=== PATIENT | female | born 1990 | race Caucasian/White ===

== ENCOUNTER 2020-07-17 18:15 | Emergency (ER) | payer SELFPAY ==
[~2020-07-17] VITALS: Ht 157.5 cm; Wt 117.0 kg
[~2020-07-17 18:15] MED LIST: ALBU0.63 NEB; ALBU2.5V8 IH; ALPR2TAB2 PO; MED FOR DEPRESSION PO
--- NOTE | 2020-07-17 19:49 | PHYS DOC ---
Past History Past Medical History: Anxiety, Asthma Past Surgical History: Tonsillectomy, Other Alcohol Use: Occasionally Drug Use: None Adult General Chief Complaint Chief Complaint: HEADACHE HPI HPI Patient is a 30-year-old female who presents to the emergency room complaining of sinus drainage, mild shortness of breath, chest tightness, dry cough. She has had similar symptoms in the past. She is not having any difficulty with her asthma at this time. She has been using her inhaler. She denies any wheezing or respiratory distress. She states this is been going on for the last 2 or 3 days. She does not believe that she has been exposed to Covid but would like to be tested. Review of Systems Review of Systems Complete ROS is negative unless otherwise documented in HPI Allergies Allergies Allergies Coded Allergies Type Severity Reaction Last Updated Verified Latex, Natural Rubber Allergy Unknown 06/12/14 No Penicillins Allergy Unknown 06/12/14 Yes amoxicillin Allergy Unknown 07/17/20 Yes bupropion Allergy Unknown 07/17/20 Yes ketorolac Allergy Unknown 06/12/14 Yes montelukast Allergy Unknown 07/17/20 Yes Physical Exam Physical Exam General: Awake, alert, NAD. Well Nourished, well hydrated. Cooperative HEENT: Atraumatic, EOMI, PERRL, airway patent, moist oral mucosa Neck: Supple, trachea midline Respiratory: CTA bilaterally, normal effort, no wheezing/crackles CV: RRR, no murmur, cap refill <2 GI: Soft, nondistended, nontender, no masses MSK: No obvious deformities Skin: Warm, dry, intact Neuro: A&O x3, speech NL, sensory and motor grossly intact, no focal deficits Psych: Normal affect, normal mood, not suicidal or homicidal EKG EKG [] Radiology/Procedures Radiology/Procedures [] Heart Score Risk Factors: Risk Factors: DM, Current or recent (<one month) smoker, HTN, HLP, family history of CAD, obesity. Risk Scores: Risk Factors: DM, Current or recent (<one month) smoker, HTN, HLP, family history of CAD, obesity. Course & Med Decision Making Course & Med Decision Making Pertinent Labs and Imaging studies reviewed. (See chart for details) Patient is a 30-year-old female who presents to the emergency room with URI symptoms. She is not in any respiratory distress at this time. Covid test will be done. Chest x-ray and test will be done. Patient will be treated symptomatically. Dragon Disclaimer Dragon Disclaimer This electronic medical record was generated, in whole or in part, using a voice recognition dictation system. Departure Departure: Impression: Primary Impression: Bronchitis Disposition: 01 DC HOME SELF CARE/HOMELESS Condition: STABLE Referrals: FRANNIE MARCELO (PCP) Patient Instructions: Acute Bronchitis Scripts Prednisone (PREDNISONE) 50 Mg Tablet 1 TAB PO DAILY for bronchitis, #5 TAB You received this medication in the emergency room today. You will starting your next dose tomorrow. Prov: JANEEN JAIN MD 07/17/20 JANEEN JAIN MD Jul 17, 2020 19:49
--- NOTE | 2020-07-17 20:30 | RAD ---
Exam: Chest one view INDICATION: Short of air TECHNIQUE: Frontal view of the chest Comparisons: 10/17/2014 FINDINGS: The cardiomediastinal silhouette and pulmonary vessels are within normal limits. The lung and pleural spaces are clear. IMPRESSION: No acute cardiopulmonary process. Electronically signed by: Moncho Elliott MD (07/17/2020 8:27 PM) [facility]
[2020-07-17] MEDS ORDERED: PRED50TA PO (20:41)
[2020-07-17 20:50] VITALS: BP 124/67
== END 2020-07-17 20:53 | disposition home or self-care (01) ==
LOC: ER 18:15
DX: J45.909 Unspecified asthma, uncomplicated (principal); F41.9 Anxiety disorder, unspecified; Z91.040 Latex allergy status; Z88.0 Allergy status to penicillin; Z88.1 Allergy status to other antibiotic agents; Z88.8 Allergy status to other drugs, medicaments and biological substances
CPT/HCPCS: 71045; 81025; 99283; 99284; U0003

== ENCOUNTER 2020-10-03 16:01 | Emergency (ER) | payer SELFPAY ==
[~2020-10-03] VITALS: Ht 157.5 cm; Wt 117.0 kg
[~2020-10-03 16:01] MED LIST changes: +PRED50TA PO
--- NOTE | 2020-10-03 16:23 | PHYS DOC ---
Past History Past Medical History: Anxiety, Asthma, Bronchitis, Depression, Pneumonia Past Surgical History: Tonsillectomy, Other Additional Past Surgical Histo: EYES Alcohol Use: None Drug Use: None General Adult EDM: Chief Complaint: COUGH HPI: HPI: 30-year-old female present emergency department today with cough fever congestion and rhinorrhea over the past 2 to 3 days. She denies any difficulty breathing. She does have a history of asthma. She denies any respiratory distress. Location upper respiratory tract. Duration constant. No alleviating factors. Review of systems negative for chest pain abdominal pain vomiting. Positive for fevers chills cough rhinorrhea. Negative for nuchal rigidity or rash. All other review of systems negative. ED course: 30-year-old female presenting with a cough. Vitals are unremarkable. Breathing comfortably in the examination room satting well. No respiratory distress. Influenza testing and Covid testing sent. X-rays unremarkable. Influenza testing negative. Covid testing pending. Covid is likely. I gave the patient Covid discharge instructions and quarantine precautions. Allergies: Allergies: Allergies Coded Allergies Type Severity Reaction Last Updated Verified Latex, Natural Rubber Allergy Unknown 06/12/14 No Penicillins Allergy Unknown 06/12/14 Yes amoxicillin Allergy Unknown 07/17/20 Yes bupropion Allergy Unknown 07/17/20 Yes ketorolac Allergy Unknown 06/12/14 Yes montelukast Allergy Unknown 07/17/20 Yes Physical Exam: PE: Constitutional: Well developed, well nourished, no acute distress, non-toxic appearance. HENT: Normocephalic, atraumatic, bilateral external ears normal, oropharynx moist, no oral exudates, nose normal. [] Eyes: PERRLA, EOMI, conjunctiva normal, no discharge. [] Neck: Normal range of motion, no tenderness, supple, no stridor. [] Cardiovascular:Heart rate regular rhythm, no murmur [] Lungs & Thorax: Bilateral breath sounds clear to auscultation Abdomen: Bowel sounds normal, soft, no tenderness, no masses, no pulsatile masses. [] Skin: Warm, dry, no erythema, no rash. Back: No tenderness, no CVA tenderness. [] Extremities: No tenderness, no cyanosis, no clubbing, ROM intact, no edema. Neurologic: Alert and oriented X 3, normal motor function, normal sensory function, no focal deficits noted. Psychologic: Affect normal, judgement normal, mood normal. [] Current Patient Data: Vital Signs: Vital Signs Date Time Temp Pulse Resp B/P (MAP) Pulse Ox O2 Delivery O2 Flow Rate FiO2 10/03/20 16:08 98.2 89 16 152/79 (103) 100 Room Air EKG: EKG: [] Radiology/Procedures: Radiology/Procedures: [] Heart Score: Risk Factors: Risk Factors: DM, Current or recent (<one month) smoker, HTN, HLP, family history of CAD, obesity. Risk Scores: Score 0 - 3: 2.5% MACE over next 6 weeks - Discharge Home Score 4 - 6: 20.3% MACE over next 6 weeks - Admit for Clinical Observation Score 7 - 10: 72.7% MACE over next 6 weeks - Early Invasive Strategies Course & Med Decision Making: Course & Med Decision Making Pertinent Labs and Imaging studies reviewed. (See chart for details) [] Dragon Disclaimer: Dragon Disclaimer: This electronic medical record was generated, in whole or in part, using a voice recognition dictation system. Departure Departure: Impression: Primary Impression: Cough Additional Impression: COVID-19 Disposition: 01 DC HOME SELF CARE/HOMELESS Condition: STABLE Referrals: FRANNIE MARCELO (PCP) Patient Instructions: Cough, Adult Additional Instructions: You have been tested for or diagnosed with COVID-19. It is an infection caused by a new type of coronavirus. COVID-19 will cause cold-like or mild flu symptoms in most. It can cause more severe symptoms like problems breathing in some. There is no treatment for COVID-19. The body will clear the infection over time. Self-care will help to ease discomfort. Steps to Take: Self-Care Rest as needed. Healthy habits may help you feel better. Steps include: Choose healthy foods including fruits and vegetables. Drink water throughout the day. Get plenty of sleep each night. If you smoke, try to quit. It may ease breathing. Avoid alcohol. Keep Others Healthy The virus can spread to others. Droplets are released every time you sneeze or cough. The droplets can get into the mouth, nose, or eyes of people near you and lead to infection. To lower the chances of spreading COVID-19 to others: Stay at home until your doctor has said it is safe to leave. If you tested positive this will mean staying isolated until both of the following are true: At least 7 days have passed since the start of illness. You are free of fever for at least 72 hours without the use of medicine. During this time: - Avoid public areas, events, or transportation. Do not return to work or school until your doctor has said it is safe to do so. - Call ahead if you need to go to a medical center. Let them know you may have COVID-19. It will help them guide you where to go. They may also ask you to wear a facemask when you come to the office. - If you call for emergency medical services, let them know you may have COVID- 19. While at home: - Try to avoid close contact with others. Stay about 6 feet away. - If possible, spend most of your time in a separate room from others. - Use a face mask if you will be in close contact with others such as sharing a room or vehicle. - Have someone wipe down common surfaces in the home. Use household oil spraying machine operator every day on areas like doorknobs, counters, or sinks. - Cough or sneeze into a tissue. Throw the tissue away right after use. If a tissue is not available, cough or sneeze into your elbow. - Wash your hands often. Wash them after sneezing or coughing. Use soap and water and wash for at least 20 seconds. Alcohol based hand cleaner and trimmer can be used if soap and water is not available. - Do not prepare food for others. Avoid sharing personal items like forks, spoons, or toothbrushes. - Avoid close contact with pets while you are sick. There is no evidence of the virus passing to pets. This is a safety step until more is known about this virus. Isolation can be frustrating. Social interaction can help. Keep in touch with friends and family through phone and tech options. You can still interact with others in your home, just keep a safe distance of about 6 feet. Follow-up: Your doctors office will check in with you to see if there are any changes in your health. You may be asked to keep track of symptoms to share with them. They will also let you know when you are clear to be in public again. Problems to Look Out For: Contact your doctor if your recovery is not going as you expect. Get emergency care if you have problems such as: - Trouble breathing - Nonstop chest pain or pressure - Changes in awareness, confusion, or problems waking - Lips or face have bluish color - Worsening of symptoms If you think you have an emergency, call for emergency medical services right away. [facility] [place] [facility] Scripts Albuterol Sulfate (PROAIR HFA INHALER) 8.5 Gm Hfa.aer.ad 2 PUFF IH PRN Q4-6HRS PRN for wheezing for 21 Days, #1 INHALER 0 Refills Prov: MARCIAL BUSH MD 10/03/20 MARCIAL BUSH MD Oct 03, 2020 16:23
--- NOTE | 2020-10-03 16:41 | RAD ---
XR CHEST 1V History: Reason: cough / Spl. Instructions: / History: Comparison: July 17, 2020 Findings: No consolidation or pleural effusion. Normal heart size. No pneumothorax. Impression: 1. No acute cardiopulmonary process. Electronically signed by: Toribio Hill DO (10/03/2020 4:38 PM) [facility]
[2020-10-03] MEDS ORDERED: ALBU2.5V8 IH (17:47)
[2020-10-03 17:49] LABS: INFLUENZA A PATIENT NEGATIVE (NEGATIVE); INFLUENZA B PATIENT NEGATIVE (NEGATIVE)
[2020-10-03] MEDS ORDERED: PRED50TA PO (17:56)
[2020-10-03 18:11] VITALS: BP 148/76
== END 2020-10-03 18:05 | disposition home or self-care (01) ==
LOC: ER 16:01
DX: R05 Cough (principal); R50.9 Fever, unspecified; R09.81 Nasal congestion; Z20.822 Contact with and (suspected) exposure to COVID-19; F41.9 Anxiety disorder, unspecified; J45.909 Unspecified asthma, uncomplicated; F32.9 Major depressive disorder, single episode, unspecified; Z91.040 Latex allergy status; Z88.0 Allergy status to penicillin; Z88.1 Allergy status to other antibiotic agents; Z88.8 Allergy status to other drugs, medicaments and biological substances
CPT/HCPCS: 71045; 87804; 99284; C9803; U0003